=== PATIENT | female | born 2000 | race Caucasian/White ===

== ENCOUNTER 2022-05-16 00:43 | Emergency (ER) | payer SELFPAY ==
[~2022-05-16] VITALS: Ht 157.5 cm; Wt 76.5 kg
[2022-05-16 00:51] VITALS: BP 124/75
== END 2022-05-16 08:10 | disposition left against medical advice (07) ==
LOC: ER 00:43
DX: Z53.21 Procedure and treatment not carried out due to patient leaving prior to being seen by health care provider (principal); R07.89 Other chest pain; R94.31 Abnormal electrocardiogram [ECG] [EKG]
CPT/HCPCS: 36415; 71045; 81025; 84484; 93005